=== PATIENT | female | born 1990 | race American Indian/Alaskan Native ===

== ENCOUNTER 2020-02-17 08:04 | Emergency (ER) | payer MEDICAID, OTHER ==
[2020-02-17 08:56] LABS: Basophils # (Auto) 0.1 K/mm3 (0.0-0.1); Basophils % (Auto) 0.5 % (0.0-1.8); Eosinophils # (Auto) 0.1 K/mm3 (0.0-0.4); Eosinophils % (Auto) 1.2 % (0.0-4.3); Hematocrit 34.7 % (30.3-42.9); Hemoglobin 11.4 gm/dl (10.1-14.3); Lymphocytes % (Auto) 26.8 % (13.4-35.0); Mean Corpuscular HGB Conc 33 % (30-34); Mean Corpuscular Volume 81 fl (79-97); Monocytes # (Auto) 0.6 K/mm3 (0.0-0.8); Monocytes % (Auto) 5.2 % (0.0-7.3); Platelet Count 283 K/mm3 (140-440); Red Blood Count 4.25 M/mm3 (3.65-5.03); Red Cell Distribution Width 16.3 % (13.2-15.2)
[2020-02-17 09:08] LABS: BUN/Creatinine Ratio 11; Blood Urea Nitrogen 8 mg/dL (7-17); Calcium 9.2 mg/dL (8.4-10.2); Hemolysis Index 3
[2020-02-17 09:28] LABS: Bacteria,Urine 1+ /HPF (Negative); Bilirubin,Urine NEG (Negative); Blood,Urine LG (Negative); Color,Urine Yellow (Yellow); Protein,Urine <15 mg/dL mg/dL (Negative); Urobilinogen,Urine < 2.0 mg/dL (<2.0)
--- NOTE | 2020-02-17 09:28 | Ultrasound Report ---
TRANSABDOMINAL AND TRANSVAGINAL OB PELVIC ULTRASOUND INDICATION / CLINICAL INFORMATION: Vaginal bleeding/spotting since Thursday. COMPARISON: None available. FINDINGS: TRANSABDOMINAL: The uterus measures 7.8 x 5.7 x 5.3 cm. There is a rounded intrauterine fluid collect ion measuring 6 weeks 6 days. Neither ovary is seen. Images of the urinary bladder are unremarkable. TRANSVAGINAL: The uterus measures 6.2 x 4.9 x 5.5 cm. There is an intrauterine gestational sac with a yolk sac. There is a pole measuring 6 weeks by crown-rump length. No cardiac activity is seen. There is a tiny area of implantation hemorrhage measuring approximately 7.2 mm. The right ovary measures 2.4 x 1.5 x 2.1 cm and contains a 1.7 cm corpus luteal cyst. The left ovary measures 2.7 x 1.3 x 1.8 cm. I see no evidence of an extraovarian mass or free fluid. IMPRESSION: 1. 6 week intrauterine without evidence of cardiac activity sonographically. Dependin g on clinical findings, a follow-up ultrasound in 7-10 days may be helpful in documenting viabi lity. 2. Small area of implantation hemorrhage. 3. 1.7 cm corpus luteal cyst in the right ovary. Signer Name: Dangelo Morton MD Signed: 02/17/2020 9:23 AM Workstation Name: [email or web address]
--- NOTE | 2020-02-17 09:38 | Emergency Department Report ---
ED HPI - General Chief complaint: Vaginal Bleeding Stated complaint: BLEEDING 6WEEKS PREG Time Seen by Provider: 02/17/20 08:28 Source: patient Mode of arrival: Ambulatory Limitations: No Limitations - History of Present Illness Initial comments: 30-year-old -[place] female that is 3 para 1 1 presents to the emergency room for spotting that started Thursday. Patient states that she is approximately 6 weeks . Patient is currently on vitamins. She is followed by [facility]. Patient's last menstrual period was 11/29/2019. Patient states that she has no pain and only sees blood when she wipes. Patient denies any trauma no dysuria no vaginal discharge. MD Complaint: vaginal bleeding Onset/Timin -: days(s) Severity scale (0 -10): 0 Associated symptoms: vaginal bleeding Vaginal bleeding: light :: Yes Number of weeks : 6 OB History - Current : no complications OB History - Previous Pregnancies: no complications Last menstrual period: 12/15/19 - Related Data : 3 Para: 1 Ab: 1 Previous Rx's Medication Instructions Recorded Last Taken Type Docusate Sodium [Colace] 100 mg PO BID PRN #60 capsule 10/19/ Unknown Rx HYDROcodone/APAP 7.5-325 [[place]adeau 1 each PO Q6HR PRN #50 tablet 10/19/15 Unknown Rx 7.5/325] Ibuprofen [Motrin] 800 mg PO Q8HR PRN #50 tablet 25/15 Unknown Rx Allergies Allergy/AdvReac Type Severity Reaction Status Date / Time tramadol Allergy Swelling Verified 02/17/20 08:05 ED Review of Systems ROS: Stated complaint: BLEEDING 6WEEKS PREG Other details as noted in HPI Comment: All other systems reviewed and negative ED Past Medical Hx - Past Medical History Hx Hypertension: No Hx Congestive Heart Failure: No Hx Diabetes: No Hx Deep Vein Thrombosis: No Hx Renal Disease: No Hx Sickle Cell Disease: No Hx Seizures: No Hx Asthma: No Hx COPD: No Hx HIV: No - Surgical History Additional Surgical History: C SECTION - Social History Smoking Status: Never Smoker Substance Use Type: None - Medications Home Medications: Home Medications Medication Instructions Recorded Confirmed Last Taken Type Docusate Sodium [Colace] 100 mg PO BID PRN #60 capsule 10/19/15 Unknown Rx HYDROcodone/APAP 7.5-325 [Nadeau 1 each PO Q6HR PRN #50 tablet 10/19/15 Unknown Rx 7.5/325] Ibuprofen [Motrin] 800 mg PO Q8HR PRN #50 tablet 10/19/15 Unknown Rx ED Physical Exam - General Limitations: No Limitations General appearance: alert, in no apparent distress - Head Head exam: Present: atraumatic, normocephalic - Eye Eye exam: Present: normal appearance - ENT ENT exam: Present: mucous membranes moist - Neck Neck exam: Present: normal inspection - Respiratory Respiratory exam: Present: normal lung sounds bilaterally. Absent: respiratory distress - Cardiovascular Cardiovascular Exam: Present: regular rate, normal rhythm. Absent: systolic murmur, diastolic murmur, rubs, gallop - GI/Abdominal GI/Abdominal exam: Present: soft, normal bowel sounds - Extremities Exam Extremities exam: Present: normal inspection - Back Exam Back exam: Present: normal inspection - Neurological Exam Neurological exam: Present: alert, oriented X3 - Psychiatric Psychiatric exam: Present: normal affect, normal mood - Skin Skin exam: Present: warm, dry, intact, normal color. Absent: rash ED Course Vital Signs 02/17/20 08:11 Temperature 98.0 F Pulse Rate 95 H Respiratory 15 Rate Blood Pressure 149/95 [Left] O2 Sat by Pulse 100 Oximetry ED Medical Decision Making - Lab Data Result diagrams: 02/17/20 08:33 02/17/20 08:33 Laboratory Tests 02/17/20 02/17/20 02/17/20 08:33 08:33 08:33 WBC 11.2 H RBC 4.25 Hgb 11.4 Hct 34.7 MCV 81 MCH 27 L MCHC 33 RDW 16.3 H Plt Count 283 Lymph % (Auto) 26.8 [place] % (Auto) 5.2 Eos % (Auto) 1.2 Baso % (Auto) 0.5 Lymph # 3.0 [place] # 0.6 Eos # 0.1 Baso # 0.1 Seg Neutrophils % 66.3 Seg Neutrophils # 7.4 Sodium 137 Potassium 3.8 Chloride 102.6 Carbon Dioxide 20 L Anion Gap 18 BUN 8 Creatinine 0.7 Estimated GFR > 60 BUN/Creatinine Ratio 11 Glucose 108 H Calcium 9.2 HCG, Quant 9473 H Urine Color Urine Turbidity Urine pH Ur Specific [place] Urine Protein Urine Glucose (UA) Urine Ketones Urine Blood Urine Nitrite Urine Bilirubin Urine Urobilinogen Ur Leukocyte Esterase Urine WBC (Auto) Urine RBC (Auto) U Epithel Cells (Auto) Urine Bacteria (Auto) Blood Type Antibody Screen 02/17/20 02/17/20 08:40 09:16 WBC RBC Hgb Hct MCV MCH MCHC RDW Plt Count Lymph % (Auto) [place] % (Auto) Eos % (Auto) Baso % (Auto) Lymph # [place] # Eos # Baso # Seg Neutrophils % Seg Neutrophils # Sodium Potassium Chloride Carbon Dioxide Anion Gap BUN Creatinine Estimated GFR BUN/Creatinine Ratio Glucose Calcium HCG, Quant Urine Color Yellow Urine Turbidity Clear Urine pH 7.0 Ur Specific [place] 1.005 Urine Protein <15 mg/dl Urine Glucose (UA) Neg Urine Ketones Neg Urine Blood Lg Urine Nitrite Neg Urine Bilirubin Neg Urine Urobilinogen < 2.0 Ur Leukocyte Esterase Tr Urine WBC (Auto) 3.0 Urine RBC (Auto) 2.0 U Epithel Cells (Auto) 9.0 Urine Bacteria (Auto) 1+ Blood Type AB POSITIVE Antibody Screen Negative - Radiology Data Radiology results: report reviewed [facility] [address] [place] [address] Ultrasound Report Signed Patient: URSZULA LAWRENCE MR#: [id number] : 1990 Acct:[id number] Age/Sex: 30 / F ADM Date: 02/17/20 Loc: ED Attending Dr: Ordering Physician: MARTHA METZ Date of Service: 02/17/20 Procedure(s): US OB transvaginal Accession Number(s): [id number] cc: MARTHA METZ TRANSABDOMINAL AND TRANSVAGINAL OB PELVIC ULTRASOUND INDICATION / CLINICAL INFORMATION: Vaginal bleeding/spotting since Thursday. COMPARISON: None available. FINDINGS: TRANSABDOMINAL: The uterus measures 7.8 x 5.7 x 5.3 cm. There is a rounded intra uterine fluid collection measuring 6 weeks 6 days. Neither ovary is seen. Images of the urinary bladder are unremarkable. TRANSVAGINAL: The uterus measures 6.2 x 4.9 x 5.5 cm. There is an intrauterine gestational sac with a yolk sac. There is a pole measuring 6 weeks by crown-rump length. No cardiac activity is seen. There is a tiny area of implantation hemorrhage measuring ap proximately 7.2 mm. The right ovary measures 2.4 x 1.5 x 2.1 cm and contains a 1.7 cm corpus luteal cyst. The left ovary measures 2.7 x 1.3 x 1.8 cm. I see no evidence of an extraovarian mass or free fluid. IMPRESSION: 1. 6 week intrauterine without evidence of cardiac activity sonographically. Depending on clinical findings, a follow-up ultrasound in 7-10 days may be help ful in documenting viability. 2. Small area of implantation hemorrhage. 3. 1.7 cm corpus luteal cyst in the right ovary. Signer Name: Dangelo Morton MD Signed: 02/17/2020 9:23 AM Workstation Name: [id number] Transcribed By: RT Dictated By: Dangelo Morton MD Electronically Authenticated By: Dangelo Morton MD Signed Date/Time: 02/17/20922 DD/ 7 TD/TT: - Medical Decision Making 30-year-old -[place] female that is 3 para 1 1 presents to the emergency room for spotting that started Thursday. Patient states that she is approximately 6 weeks . Patient is currently on vitamins. She is followed by [facility]. Patient's last menstrual period was 11/29/2019. Patient states that she has no pain and only sees blood when she wipes. Patient denies any trauma no dysuria no vaginal discharge. Vaginal bleeding protocol for . Ultrasound shows that there is no cardiac activity recommend a 7 to 10-day repeat of an ultrasound. I spoke to Dr. Suzette Anderson from [facility] she recommends the patient does pelvic rest and rest in general. She recommends for her to call to get an appointment next week to repeat ultrasound and work-up to rule out or rule in vitality. Inform patient that she needs to call [facility] today to make a follow-up a ppointment next week for an ultrasound and lab work. Critical care attestation.: If time is entered above; I have spent that time in minutes in the direct care of this critically ill patient, excluding procedure time. ED Disposition Clinical Impression: Threatened miscarriage in early Disposition: DC-01 TO HOME OR SELFCARE Is pt being admited?: No Does the pt Need Aspirin: No Condition: Stable Instructions: Threatened Miscarriage (ED) Additional Instructions: Recommend pelvic rest and general rest. Call [facility] today to make an appointment for next week to have a repeat ultrasound and labs. Return back to the emergency room sooner if you have any increase in bleeding abdominal pain shortness of breath or chest pain. Referrals: PRIMARY CARE, [Primary Care Provider] - 3-5 Days SUZETTE ANDERSON MD [Staff Physician] - 3-5 Days Forms: Work/School Release Form(ED)
[2020-02-17 10:03] VITALS: BP 140/90
== END 2020-02-17 10:01 | disposition home or self-care (01) ==
LOC: ED 08:04
DX: O20.0 Threatened abortion (principal); Z98.890 Other specified postprocedural states; Z79.899 Other long term (current) drug therapy; Z88.8 Allergy status to other drugs, medicaments and biological substances; Z3A.01 Less than 8 weeks gestation of pregnancy
CPT/HCPCS: 36415; 76801; 76817; 80048; 81001; 84702; 85025; 86850; 86900; 86901